=== PATIENT | female | born 1995 | race Caucasian/White ===

== ENCOUNTER 2021-10-14 07:32 | Inpatient (IN) ==
[2021-10-14] MEDS ORDERED: OXYTOCIN 30 UNITS/500 ML BAG IV PRN ×2 (08:24→08:35)
[2021-10-14 08:51] LABS: Hematocrit (blood only) 37.3 % (37-47); Hemoglobin 12.4 g/dL (12.0-16.0); Mean Corpuscular Hgb Conc 33.2 g/dL (32-36); Mean Corpuscular Volume 90.3 fL (80-100); Mean Platelet Volume 10.2 fL (7.4-10.4); Platelet Count 158 K/uL (130-400); RDW Coefficient of Variation 13.7 % (11.5-14.5); Red Blood Count 4.13 M/uL (4.2-5.4); White Blood Count 9.12 K/uL (4.8-10.8)
[2021-10-14] MEDS: LACTATED RINGER'S 1,000 ML IV PRN ×4 (08:56→23:10)
--- NOTE | 2021-10-14 09:01 | History & Physical Report ---
Date of Service October 14, 2021 Assessment & Plan (1) Supervision of normal first : Plan: 26 y/o G1 at 40 2/7 wga presenting for post EDC/eIOL VSS Fetus cat 1 Labor - will start with pitocin, plan arom GBS neg Epidural prn Admission and Anticipated Discharge Date Admission Date: October 14, 2021 History of Present Illness Chief Complaint: IOL Primary Care Provider: HOLLAND Lopez 26 y/o G1 at 40 2/7 wga w/ RAJESH 10/12 who presents for post-edc/elective IOL. +FM; denies regular ctx, LOF, VB PNI: Placental cyst s/p MFM, cyst present 08/18 at f/u Past [employer] Hx: G1 q28-30d cycles Declines hx STIs Declines hx abnl pap, 2020 neg cotest Allergies Allergy/AdvReac Type Severity Reaction Status Date / Time No Known Allergies Allergy Verified 10/13/21 09:18 Home Medications Medication Instructions Recorded Confirmed Type clobetasol TOPICAL PRN 02/24/21 10/13/21 History prenat.vits,oleg,rit-vypj-[id number] 1 tab PO DAILY 02/24/21 10/13/21 History ferrous sulfate PO 08/19/21 10/13/21 History breast pump #1 ea 09/23/21 10/13/21 Rx Patient History Medical History (Updated 06/05/21 @ 09:33 by Mark Anthony Kohli MD, FACOG) Eczema No significant active problems Varicella vaccination Surgical History (Updated 02/24/21 @ 09:55 by Yazmin Domínguez) S/P wisdom tooth extraction Family History (Updated 02/24/21 @ 09:56 by Yazmin Domínguez) Mother Hypertension Gestational diabetes Anxiety Aunt Diabetes Uncle Diabetes Denies family history of Ovarian cancer Breast cancer Colorectal cancer Social History (Updated 02/24/21 @ 09:58 by Yazmin Domínguez) Smoking Status: Never smoker Hx Alcohol Use: No Hx Substance Use: No Preferred Language: Sami Communication Ability: Effective Councilperson Required: No Beliefs That Will Affect Care: None marital status: marital status details: Quan Orellana ([phone] Current Living Situation: Family Current Living Situation Comment: Lives with , 8 rabbits, 1 dog, and 1 cat current occupational status: employed 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[employer] [place] Feels Safe at Home: Yes Safety Concerns: Feels Safe At This Time Assistive Devices: None Physical Exam Constitutional: WD/WN, vitals as above Respiratory: normal respiratory effort; no respiratory distress and no labored breathing Psychiatric: A+Ox3, euthymic affect Genitourinary: OB Exam Abdomen: + vertex and + estimated weight (7-8) Manual OB Exam: + cervical dilation (2-3), + cervical effacement 70% and + station high OB Exam Monitor Tracing: + external FHT monitor used, + external uterine monitor used (irreg ctx) and + category I (145/mod/+accel/-decel) Results & Data ([facility]) Vital Signs (Past 12 Hours) Vital Signs Temp Pulse Resp BP 10/14/21 07:53 99.0 F 96 H 16 134/88 Laboratory Results OB Labs: Blood Type O Positive 03/05/21 Antibody Screen NEGATIVE 03/05/21 Hemoglobin 11.3 g/dL (12.0-16.0) L 07/23/21 Hematocrit 34.0 % (37-47) L 07/23/21 Mean Corpuscular Volume 86.2 fL (80-100) 03/05/21 Platelet Count 222 K/uL (130-400) 03/05/21 Rubella IgG Antibody Immune (Immune) 03/05/21 Rapid Plasma Reagin Nonreactive (Nonreactive) 03/05/21 Hepatitis B Surface Antigen Neg (Neg) 03/05/21 HIV (1&2) Ab and P24 Ag, 4th Gener Neg (Neg) 03/05/21 Glucose 1 Hour 50 gm Load 121 mg/dl (70-130) 07/23/21 OB Optional Labs: Chlamydia trachomatis RNA NOT DETECTED (NOT DETECTED) 03/05/21 Neisseria gonorrhoeae RNA NOT DETECTED (NOT DETECTED) 03/05/21 neg cf/sma GBS neg Diagnostic Findings posterior plac Coding Level of Care Code None Diagnoses Supervision of normal first Z34.00
--- NOTE | 2021-10-14 12:59 | Labor Progress Brief Note ---
Date of Service October 14, 2021 Subjective Feeling ctx, tolerable on the ball Assessment & Plan (1) Supervision of normal first : Plan: 26 y/o G1 at 40 2/7 wga presenting for post EDC/eIOL VSS Fetus cat 1 Labor - pit at 8, now s/p arom. Continue induction GBS neg Epidural prn Admission and Anticipated Discharge Date Admission Date: October 14, 2021 Physical Exam Genitourinary: Manual OB Exam: + cervical dilation (3-4), + cervical effacement 70%, + station -2 and + amniotic fluid (arom clear) OB Exam Monitor Tracing: + external FHT monitor used, + external uterine monitor used (q3-5) and + category I (135-140/mod/+accel/-decel) Results & Data ([facility]) Vital Signs (Past 12 Hours) Vital Signs Temp Pulse Resp BP 10/14/21 12:25 66 120/76 10/14/21 11:56 60 127/77 10/14/21 11:25 56 L 120/78 10/14/21 10:56 59 L 126/75 10/14/21 10:30 63 122/76 10/14/21 09:56 71 123/73 10/14/21 09:25 70 120/77 10/14/21 08:54 73 123/73 10/14/21 07:53 99.0 F 96 H 16 134/88 10/14/21 07:50 99.0 F 16 Coding Level of Care Code None Diagnoses Supervision of normal first Z34.00
[2021-10-14] MEDS ORDERED: ePHEDrine sulfate 50 MG/ML AMP ONE (14:17)
[2021-10-14] MEDS ORDERED: SODIUM CHLORIDE 0.9% INJ 10 ML VIAL ONE (14:18)
[2021-10-14] MEDS ORDERED: fentaNYL citrate 100 MCG/2 ML VIAL ONE (14:18)
[2021-10-14] MEDS ORDERED: BUPIVACAINE 0.25% 30 ML VIAL ONE (14:18)
[2021-10-14] MEDS ORDERED: fentaNYL 2MCG/ML ROPIVACAINE 1.25MG/ML 100 ML BAG EPI ONE (14:19)
[2021-10-14] MEDS ORDERED: fentaNYL 2MCG/ML ROPIVACAINE 1.25MG/ML 100 ML BAG EPI PRN (15:02)
[2021-10-14] MEDS ORDERED: ONDANSETRON INJ 2 MG/ML 2 ML VIAL IV PRN ×2 (15:02→20:32)
[2021-10-14] MEDS ORDERED: diphenhydrAMINE 50 MG/ML VIAL IV PRN (15:02)
[2021-10-14] MEDS ORDERED: NALOXONE HCL 1 MG in SODIUM CHLORIDE 0.9% 1000ML 1,000 ML IV PRN (15:02)
[2021-10-14] MEDS ORDERED: NALBUPHINE HCL INJ 10 MG/ML AMP IV PRN (15:02)
[2021-10-14] MEDS ORDERED: ePHEDrine sulfate 50 MG/ML AMP IV PRN (15:02)
[2021-10-14] MEDS ORDERED: NALOXONE HCL 0.4 MG/1 ML VIAL/CARP IV PRN (15:02)
--- NOTE | 2021-10-14 15:05 | Anesthesiology Consultation ---
Date of Service October 14, 2021 Assessment & Plan Chart Review Chart Review: Patient NOT seen in Pre Admission Testing and Acceptable Risk for Labor Epidural Consults Requested none ASA ASA2 Proposed Anesthesia Anesthesia Type: Labor Epidural and CSE Risk / Benefits Reviewed With: PT / POA / Parent / Guardian, Accepts Plan and Informed Consent Obtained History Height/Weight Height: 5 ft 4 in Weight: 88.904 kg Allergies Allergy/AdvReac Type Severity Reaction Status Date / Time No Known Allergies Allergy Verified 10/13/21 09:18 Medications Home Medications Medication Instructions Recorded Confirmed Last Taken clobetasol TOPICAL PRN 02/24/21 10/13/21 10/10/21 09:00 prenat.vits,oleg,whs-jzue-xhjpa 1 tab PO DAILY 02/24/21 10/14/21 10/13/21 09:00 ferrous sulfate PO 08/19/21 10/13/21 10/13/21 08:00 breast pump #1 ea 09/23/21 10/13/21 Unknown Active Medications Generic Name Dose Route Start Last Admin Trade Name Nasrin PRN Reason Stop Dose Admin Lactated Ringer's 1,000 mls @ 125 mls/hr 10/14/21 08:24 10/14/21 14:42 Lr IV 10/16/21 08:23 999 mls/hr .Q8H PRN Administration L&D Protocol Protocol Oxytocin 30 units in 500 mls @ 8 mls/hr 10/14/21 08:35 10/14/21 12:40 Pitocin IV 10/16/21 08:34 0.48 units/hr .Q24H PRN 8 mls/hr Labor Induction/Augmentation Titration Protocol 0.48 UNITS/HR NPO Date Last Intake of Fluids: 10/14/21 Time Last Intake of Fluids: 14:00 Date Last Intake of Solids: 10/14/21 Time Last Intake of Solids: 08:00 Past Medical History Medical History Eczema No significant active problems Varicella vaccination Exercise / Class Metabolic Activity II 4-5 Yardwork/Stairs/Walk up hill Past Family History Family History Mother Hypertension Gestational diabetes Anxiety Aunt Diabetes Uncle Diabetes Denies family history of Ovarian cancer Breast cancer Colorectal cancer Past Surgical History Surgical History S/P wisdom tooth extraction Past Anesthesia History No Hx of Anesthesia Complications and No Family Hx of Anesthesia Complications History of PONV No Hx of PONV and No Hx of Motion Sickness Social History Smoking Status: Never smoker Hx Alcohol Use: No Hx Substance Use: No substance use type: does not use Review of Systems no chest pain or sob Physical Exam Vital Signs Last Vital Signs Temp 37.2 C 10/14/21 13:50 Pulse 73 10/14/21 14:58 Resp 18 10/14/21 13:50 BP 125/71 10/14/21 14:58 Pulse Ox 100 10/14/21 14:58 ENMT Mouth: no TMJ abnormality Thyromental Distance: > or= 3.5 Finger Breadths Mallampati Class: II Neck normal visual inspection Respiratory normal respiratory effort Auscultation: lungs clear to auscultation bilaterally Cardiovascular Rate/Rhythm: regular rate and regular rhythm Musculoskeletal Spine: normal cervical ROM Neurologic moves all extremities Psychiatric Orientation: alert and oriented x 3 Testing Laboratory Results 10/14/21 08:37
--- NOTE | 2021-10-14 16:17 | Labor Progress Brief Note ---
Date of Service October 14, 2021 Subjective Comfortable w/ epidural Assessment & Plan (1) Supervision of normal first : Plan: 26 y/o G1 at 40 2/7 wga presenting for post EDC/eIOL VSS Fetus cat 1 Labor - continue pit, station much lower and cervix thinner GBS neg Epidural in place Admission and Anticipated Discharge Date Admission Date: October 14, 2021 Physical Exam Genitourinary: Manual OB Exam: + cervical dilation 4 cm, + cervical effacement 80% and + station -2 and -1 OB Exam Monitor Tracing: + external FHT monitor used, + external uterine monitor used (q2-4) and + category I (135-140 /mod/+accel/-decel) Results & Data ([facility]) Vital Signs (Past 12 Hours) Vital Signs Temp Pulse Resp BP Pulse Ox 10/14/21 16:14 68 119/58 L 10/14/21 16:13 68 139/60 98 10/14/21 16:08 58 L 98 10/14/21 16:07 64 124/62 10/14/21 16:03 65 98 10/14/21 16:02 63 122/61 10/14/21 15:58 59 L 121/63 98 10/14/21 15:53 62 116/64 97 10/14/21 15:48 62 98 10/14/21 15:46 67 123/58 L 10/14/21 15:45 20 10/14/21 15:43 61 98 10/14/21 15:41 61 124/58 L 10/14/21 15:38 64 97 10/14/21 15:36 71 121/57 L 10/14/21 15:33 68 97 10/14/21 15:31 66 124/59 L 10/14/21 15:30 18 10/14/21 15:28 70 99 10/14/21 15:25 98.4 F 71 16 120/60 10/14/21 15:23 71 119/59 L 99 10/14/21 15:21 66 124/62 10/14/21 15:19 73 132/60 10/14/21 15:18 69 100 10/14/21 15:13 77 100 10/14/21 15:08 88 100 10/14/21 15:03 61 100 10/14/21 14:58 73 125/71 100 10/14/21 14:53 75 100 10/14/21 14:26 101 H 121/64 82 L 10/14/21 13:56 65 128/70 10/14/21 13:50 99.0 F 18 10/14/21 13:25 70 117/79 10/14/21 12:56 70 155/78 H 10/14/21 12:25 66 120/76 10/14/21 11:56 60 127/77 10/14/21 11:25 56 L 120/78 10/14/21 10:56 59 L 126/75 10/14/21 10:30 63 122/76 10/14/21 09:56 71 123/73 10/14/21 09:25 70 120/77 10/14/21 08:54 73 123/73 10/14/21 07:53 99.0 F 96 H 16 134/88 10/14/21 07:50 99.0 F 16 Coding Level of Care Code None Diagnoses Supervision of normal first Z34.00
--- NOTE | 2021-10-14 19:08 | Labor Progress Brief Note ---
Date of Service October 14, 2021 Subjective Comfortable w/ epidural Assessment & Plan (1) Supervision of normal first : Plan: 26 y/o G1 at 40 2/7 wga presenting for post EDC/eIOL VSS Fetus cat 1 Labor - good progression, continue augmentation GBS neg Epidural in place Admission and Anticipated Discharge Date Admission Date: October 14, 2021 Physical Exam Genitourinary: Manual OB Exam: + cervical dilation 9 cm, + cervical effacement 90% and + station 0 and + 1 OB Exam Monitor Tracing: + external FHT monitor used, + external uterine monitor used (q2-4) and + category I (125/mod/+accel/- decel) Results & Data ([facility]) Vital Signs (Past 12 Hours) Vital Signs Temp Pulse Resp BP Pulse Ox 10/14/21 19:04 72 130/75 10/14/21 19:03 76 100 10/14/21 18:58 62 99 10/14/21 18:53 56 L 99 10/14/21 18:49 58 L 124/68 10/14/21 18:48 53 L 99 10/14/21 18:43 55 L 100 10/14/21 18:38 54 L 100 10/14/21 18:34 61 122/69 10/14/21 18:33 72 98 10/14/21 18:28 53 L 100 10/14/21 18:23 60 100 10/14/21 18:21 53 L 118/65 10/14/21 18:18 60 99 10/14/21 18:13 59 L 99 10/14/21 18:08 55 L 100 10/14/21 18:04 63 119/62 10/14/21 18:03 61 100 10/14/21 18:00 20 10/14/21 17:58 53 L 98 10/14/21 17:53 61 98 10/14/21 17:50 57 L 117/66 10/14/21 17:48 60 98 10/14/21 17:45 18 10/14/21 17:43 61 99 10/14/21 17:38 68 98 10/14/21 17:34 66 121/61 10/14/21 17:33 70 97 10/14/21 17:30 18 10/14/21 17:28 67 98 10/14/21 17:23 67 98 10/14/21 17:20 71 123/63 10/14/21 17:18 70 98 10/14/21 17:13 67 98 10/14/21 17:08 79 98 10/14/21 17:03 66 96 10/14/21 17:01 68 116/57 L 10/14/21 17:00 98.6 F 20 10/14/21 16:58 62 96 10/14/21 16:57 60 119/59 L 10/14/21 16:53 64 97 10/14/21 16:51 67 113/55 L 10/14/21 16:48 65 96 10/14/21 16:47 65 116/61 10/14/21 16:45 18 10/14/21 16:43 61 116/56 L 96 10/14/21 16:38 64 119/58 L 96 10/14/21 16:33 64 96 10/14/21 16:32 61 118/59 L 10/14/21 16:30 18 10/14/21 16:28 60 97 10/14/21 16:27 62 117/59 L 10/14/21 16:23 62 97 10/14/21 16:21 70 119/60 10/14/21 16:18 60 97 10/14/21 16:16 67 120/62 10/14/21 16:15 20 10/14/21 16:14 68 119/58 L 10/14/21 16:13 68 139/60 98 10/14/21 16:08 58 L 98 10/14/21 16:07 64 124/62 10/14/21 16:03 65 98 10/14/21 16:02 63 122/61 10/14/21 16:00 20 10/14/21 15:58 59 L 121/63 98 10/14/21 15:53 62 116/64 97 10/14/21 15:48 62 98 10/14/21 15:46 67 123/58 L 10/14/21 15:45 20 10/14/21 15:43 61 98 10/14/21 15:41 61 124/58 L 10/14/21 15:38 64 97 10/14/21 15:36 71 121/57 L 10/14/21 15:33 68 97 10/14/21 15:31 66 124/59 L 10/14/21 15:30 18 10/14/21 15:28 70 99 10/14/21 15:25 98.4 F 71 16 120/60 10/14/21 15:23 71 119/59 L 99 10/14/21 15:21 66 124/62 10/14/21 15:19 73 132/60 10/14/21 15:18 69 100 10/14/21 15:13 77 100 10/14/21 15:08 88 100 10/14/21 15:03 61 100 10/14/21 14:58 73 125/71 100 10/14/21 14:53 75 100 10/14/21 14:26 101 H 121/64 82 L 10/14/21 13:56 65 128/70 10/14/21 13:50 99.0 F 18 10/14/21 13:25 70 117/79 10/14/21 12:56 70 155/78 H 10/14/21 12:25 66 120/76 10/14/21 11:56 60 127/77 10/14/21 11:25 56 L 120/78 10/14/21 10:56 59 L 126/75 10/14/21 10:30 63 122/76 10/14/21 09:56 71 123/73 10/14/21 09:25 70 120/77 10/14/21 08:54 73 123/73 10/14/21 07:53 99.0 F 96 H 16 134/88 10/14/21 07:50 99.0 F 16 Coding Level of Care Code None Diagnoses Supervision of normal first Z34.00
[2021-10-15] MEDS ORDERED: cefOXitin 2,000 MG in DEXTROSE 5% 50 ML IV ONE (01:45)
[2021-10-15] MEDS ORDERED: AMMONIA, AROMATIC INHAL 1 EA AMP INH ONE (02:28)
[2021-10-15] MEDS ORDERED: cefOXitin 2,000 MG in DEXTROSE 5% 50 ML IV STA (02:32)
--- NOTE | 2021-10-15 02:35 | Delivery Summary ---
Vaginal Delivery Summary Date of Service October 15, 2021 Vaginal Delivery Summary and 3rd Degree LAC PREOPERATIVE DIAGNOSIS: 1. Single intrauterine at 40 3/7 wga 2. Placental cyst 3. Induction of labor POSTOPERATIVE DIAGNOSIS: 1. Single intrauterine at 40 3/7 wga 2. Placental cyst 3. Induction of labor 4. Delivered PROCEDURE: 1. Vacuum assisted vaginal delivery. SURGEON: Dorota Gamez MD ANESTHESIA: Epidural. ESTIMATED BLOOD LOSS: 500 mL FLUIDS: Continuous LR. URINE OUTPUT: None. COMPLICATIONS: None. CONDITION: Stable. INDICATIONS: 26 y/o G1 at 40 3/7 wga presented 1 day ago for planned post-edc induction of labor. She was started on pitocin and underwent artificial rupture of membranes. She received an epidural for pain control. She then progressed to complete and desired to push. FINDINGS: A viable female infant, weight pending with Apgars of 8 and 9 at 1 and 5 minutes respectively. SPECIMEN: Cord gases, cord blood, placenta OPERATIVE REPORT: The patient progressed to 10 cm, 100% effaced and +1 station and pushed for approximately 3 hours to achieve +2 station however was exhausted and requested vacuum assistance. We discussed risks associated with vacuum delivery including scalp abrasion, intracranial hemorrhage, intraventricular hemorrhage, cephalohematoma, brachial plexus injury, OASIS and verbal consent was obtained. Bladder had been emptied 30 minutes prior to discussion of vacuum. head was palpated OA and Kiwi vacuum was applied to the flexion point and pressure increased to the green zone. With the next contraction, patient pushed and the vacuum was pulled over two total contractions and no pop- offs with anesthesia to deliver a viable female infant, weight and Apgars as above. Head of delivered in OA position and Kiwi was removed. Body cord was present and delivered through with body and shoulders delivered following without difficulty. was delivered to maternal abdomen and nursing staff. Delayed cord clamping was performed for 60 seconds. Cord was clamped and cut. Cord segment/gases and blood was obtained. Placenta delivered spontaneously intact with 3-vessel cord. IV oxytocin and fundal massage were given for excellent hemostasis. Vagina, cervix, perineum, and placenta were inspected. Rectal exam was performed confirming rectal mucosa intact. A 3C perineal tear was noted in addition to a left sulcal and bilateral labial lacerations. Cefoxitin was administered at start of repair. A right vaginal repair was first repaired with 3-0 Vicryl. Attention was then turned to the the third degree. Internal anal sphincter was reapproximated. Subsequently the external anal sphincter was identified and repaired in end to end fashion using 2-0 Vicryl. The perineal body was then reinforced with 3-0 Vicryl. Remainder of the tear was repaired and incorporated the high left sulcal in the usual fashion using 3- 0 Vicryl. The bilateral labial tears were repaired using 4-0 vicryl. There was excellent hemostasis. Digital rectal exam confirmed no stitches in the vagina. Sponge and needle counts correct x2. No sponges were left behind. Mother and stable in immediate period. [facility] Vaginal Delivery Charge Vaginal Delivery Codes: 96735 global code for the antepartum, delivery, and post- Delivery Type Details: and 3rd Degree LAC
[2021-10-15 02:36] LABS: Base Excess Cord Venous Blood -1.1 mEq/L (-7.7-1.9); CO2 Cord Arterial Blood 37 mmHg (39.1-73.5); Cord Venous Blood HCO3 23 mmol/L (18.4-26.8); Cord Venous Blood PCO2 38 mmHg (30.4-57.2); Cord Venous Blood PO2 37 mmHg (14.1-43.3); HCO3 Cord Arterial Blood 22 mmol/L (19.7-28.5); Oxygen Sat Cord Arterial Blood 74.1 % (<60); PO2 Cord Arterial Blood 37 mmHg (4.1-31.7)
[2021-10-15] MEDS ORDERED: DIPHTHERIA/TETANUS/PERTUSSIS 0.5 ML SYR/VIAL IM ONE (03:04)
[2021-10-15] MEDS ORDERED: OXYTOCIN 30 UNITS/500 ML BAG IV PRN (03:04)
[2021-10-15] MEDS ORDERED: BENZOCAINE 20% AER SPR 82.5 GM CAN EXT PRN (03:04)
[2021-10-15] MEDS ORDERED: SUPERCREAM 0.870% 15 GM JAR EXT PRN (03:04)
[2021-10-15] MEDS ORDERED: HYDROCORTISONE ACETATE 25 MG SUPP PR PRN (03:04)
[2021-10-15] MEDS: IBUPROFEN 600 MG TAB PO PRN ×4 (04:42→20:39)
[2021-10-15] MEDS: DOCUSATE SODIUM 100 MG CAP PO SCH ×2 (08:41→20:40)
[2021-10-15] MEDS: PRENATAL VITAMIN 1 TAB PO SCH (08:42)
[2021-10-15] MEDS: POLYETHYLENE (MIRALAX) 17 GM PACK PO SCH (08:42)
--- NOTE | 2021-10-15 09:49 | Anesthesia Procedure Note ---
Date of Service October 15, 2021 Anesthesia Post Epidural Note Vital Signs Vital Signs: Temp Pulse Resp BP Pulse Ox 97.9 F 85 20 111/70 98 10/15/21 08:00 10/15/21 08:00 10/15/21 08:00 10/15/21 08:00 10/15/21 08:00 Pain Intensity Vaginal: Pain Intensity: 2 Notes Mental Status: alert / awake / arousable and participated in evaluation Nausea / Vomiting: adequately controlled Pain: adequately controlled Airway Patency, RR, SpO2: stable & adequate BP & HR: stable & adequate Hydration State: stable & adequate Neuraxial Anesthesia: was administered and sensory block is resolving Anesthetic Complications: no major complications apparent and Pt Satisfied with anesthetic care Epidural: Removed without complications and With tip intact
[2021-10-15] MEDS: ACETAMINOPHEN 325 MG TAB PO PRN (23:48)
[2021-10-16] MEDS: IBUPROFEN 600 MG TAB PO PRN ×4 (03:28→18:45)
--- NOTE | 2021-10-16 06:56 | Obstetrical Progress Note ---
Date of Service <Foreign Field MD - Last Filed: 10/16/21 08:07> October 16, 2021 Assessment & Plan <Foreign Field MD - Last Filed: 10/16/21 08:07> (1) Vaginal delivery: 26 yo now PPD1 from with 3rd degree perineal laceration at 40wk3d -Continue routine care, anticipate d/c tomorrow -Vitals reviewed- HDS, afebrile -Blood type O+, GBS-, Rubella immune -Encourage ambulation, regular diet -Pain control with ibuprofen, acetaminophen PRN -Encourage -Hgb 7.7, asymptomatic. Continue to monitor. -F/u in 6 weeks with OB <Merry Grace MD, FACOG - Last Filed: 10/16/21 08:19> (1) Vaginal delivery: Subjective <Foreign Field MD - Last Filed: 10/16/21 08:07> Ambulation: ambulating normally Voiding: no voiding problems Passing Gas:: Yes Diet Tolerance:: regular diet Lochia:: Small Feeding Type:: breast feeding Current Pain Level(1-10): 0 Pt doing well overall, no acute complaints or distress. Pain well controlled with medication. Has passed BM. Review of Systems Denies fever/chills. Denies dyspnea, cough. Denies chest pain. Denies breast pain or discharge. Denies dysuria. Denies headache. Denies back pain. Physical Exam <Foreign Field MD - Last Filed: 10/16/21 08:07> General: Alert, oriented, no acute distress Cardiac: Regular rate and rhythm, normal S1, S2. No murmurs noted. Respiratory: Clear to auscultation b/l with good air flow entry, symmetric chest rise and fall. No wheezes or crackles. No increased work of breathing or accessory muscle use. Abdomen: Soft, nontender, nondistended. Fundus firm and palpable at 2 cm below umbilicus. No guarding or rebound. Skin: No rashes or lesions Extremities: Warm, dry and well-perfused with capillary refill <2s b/l. No lower extremity edema, erythema or swelling. Negative Amor's sign b/l. Results & Data ([facility]) <Foreign Field MD - Last Filed: 10/16/21 08:07> Vital Signs (Past 12 Hours) Vital Signs Temp Pulse Resp BP 10/15/21 23:40 36.7 C 90 18 118/71 10/15/21 20:20 36.6 C 94 H 18 119/72 <Merry Grace MD, FACOG - Last Filed: 10/16/21 08:19> Co-Signing Physician Notes Resident Physician Supervision Note: I was present with Dr. Field during the history and exam. I discussed the case with the resident and agree with the findings and plan as documented in the note. Any exceptions or clarifications are listed here: doing well, routine care. roberto hgb. no active bleeding. aware of laceration and keep bowels soft and regular. Documented By: Merry Grace MD, FACOG Resident Activity Tracking <Foreign Field MD - Last Filed: 10/16/21 08:07> Resident Involvement: Resident Care Provided Care Provided: OB Delivery
[2021-10-16 06:57] LABS: Hematocrit (blood only) 23.2 % (37-47); Hemoglobin 7.7 g/dL (12.0-16.0); Mean Corpuscular Hemoglobin 30.2 pg (25-34); Mean Corpuscular Hgb Conc 33.2 g/dL (32-36); Mean Platelet Volume 9.5 fL (7.4-10.4); Platelet Count 149 K/uL (130-400); RDW Coefficient of Variation 13.9 % (11.5-14.5); RDW Standard Deviation 46.2 fL (36.4-46.3); Red Blood Count 2.55 M/uL (4.2-5.4); White Blood Count 15.55 K/uL (4.8-10.8)
[2021-10-16] MEDS: DOCUSATE SODIUM 100 MG CAP PO SCH ×2 (07:43→20:46)
[2021-10-16] MEDS: PRENATAL VITAMIN 1 TAB PO SCH (07:43)
[2021-10-16] MEDS: POLYETHYLENE (MIRALAX) 17 GM PACK PO SCH (13:18)
[2021-10-16] MEDS: ACETAMINOPHEN 325 MG TAB PO PRN (20:46)
--- NOTE | 2021-10-17 05:40 | Obstetrical Progress Note ---
Date of Service <Foreign Field MD - Last Filed: 10/17/21 07:43> October 17, 2021 Assessment & Plan <Foreign Field MD - Last Filed: 10/17/21 07:43> (1) Vaginal delivery: 26 yo now PPD2 from with 3rd degree perineal laceration at 40wk3d -D/c today, care instructions reviewed -Vitals reviewed- HDS, afebrile -Blood type O+, GBS-, Rubella immune -Encourage ambulation, regular diet -Pain control with ibuprofen, acetaminophen PRN -Encourage -Hgb 7.5, asymptomatic. Continue iron supplementation as outpatient, recheck Hgb. -F/u in 6 weeks with OB <Naomi Veloz MD, FACOG - Last Filed: 10/17/21 08:41> (1) Vaginal delivery: Subjective <Foreign Field MD - Last Filed: 10/17/21 07:43> Ambulation: ambulating normally Voiding: no voiding problems Passing Gas:: Yes Diet Tolerance:: regular diet Lochia:: Small Feeding Type:: breast feeding Current Pain Level(1-10): 0 Pt doing well overall, no acute complaints or distress. Some general soreness of pelvis and lower back but pain well controlled with medication. Review of Systems Denies fever/chills. Denies dyspnea, cough. Denies chest pain. Denies breast pain or discharge. Denies dysuria. Denies headache. Denies back pain. Physical Exam <Foreign Field MD - Last Filed: 10/17/21 07:43> General: Alert, oriented, no acute distress Cardiac: Regular rate and rhythm, normal S1, S2. No murmurs noted. Respiratory: Clear to auscultation b/l with good air flow entry, symmetric chest rise and fall. No wheezes or crackles. No increased work of breathing or accessory muscle use. Abdomen: Soft, nontender, nondistended. Fundus firm and palpable at 2 cm below umbilicus. No guarding or rebound. Skin: No rashes or lesions Extremities: Warm, dry and well-perfused with capillary refill <2s b/l. No lower extremity edema, erythema or swelling. Negative Amor's sign b/l. Results & Data ([facility]) <Foreign Field MD - Last Filed: 10/17/21 07:43> Vital Signs (Past 12 Hours) Vital Signs Temp Pulse Resp BP 10/17/21 00:00 36.6 C 81 18 117/73 <Naomi Veloz MD, FACOG - Last Filed: 10/17/21 08:41> Co-Signing Physician Notes Resident Physician Supervision Note: I interviewed and examined the patient. Discussed with Dr. Field and agree with findings and plan as documented in the note. Any exceptions or clarifications are listed here: [None] Documented By: Naomi Veloz MD, FACOG Resident Activity Tracking <Foreign Field MD - Last Filed: 10/17/21 07:43> Resident Involvement: Resident Care Provided Care Provided: OB Delivery
[2021-10-17] MEDS: IBUPROFEN 600 MG TAB PO PRN ×2 (06:41→12:41)
[2021-10-17 07:12] LABS: Hematocrit (blood only) 22.4 % (37-47); Hemoglobin 7.5 g/dL (12.0-16.0)
[2021-10-17] MEDS: DOCUSATE SODIUM 100 MG CAP PO SCH (08:15)
[2021-10-17] MEDS: PRENATAL VITAMIN 1 TAB PO SCH (08:15)
[2021-10-17] MEDS: POLYETHYLENE (MIRALAX) 17 GM PACK PO SCH (09:00)
--- NOTE | 2021-10-20 09:31 | Discharge Summary ---
Date of Service October 20, 2021 Admission HPI Per Admitting Provider 26 y/o G1 at 40 2/7 wga w/ RAJESH 10/12 who presents for post-edc/elective IOL. +FM; denies regular ctx, LOF, VB PNI: Placental cyst s/p MFM, cyst present 08/18 at f/u Past [employer] Hx: G1 q28-30d cycles Declines hx STIs Declines hx abnl pap, 2019 neg cotest Admission Exam (Per Admitting) Constitutional WD/WN, vitals as above Respiratory normal respiratory effort; no respiratory distress and no labored breathing Psychiatric A+Ox3, euthymic affect Genitourinary OB Exam Abdomen: + vertex and + estimated weight (7-8) Manual OB Exam: + cervical dilation + 9 cm, + cervical effacement + 90%, + station + 0 and + + 1 and + amniotic fluid (arom clear) OB Exam Monitor Tracing: + external FHT monitor used, + external uterine monitor used (q2-4) and + category I (125/mod/+accel/-decel) Discharge Data Consultations 10/14/21 08:24 Consult Anesthesiology Stat Procedures Performed Vacuum assisted vaginal delivery Hospital Course (1) Vacuum-assisted vaginal delivery: The patient presented for planned post-edc induction of labor. She was started on pitocin and underwent artificial rupture of membranes. She received an epidural for pain control. She then progressed to complete and desired to push.The patient progressed to 10 cm, 100% effaced and +1 station and pushed for approximately 3 hours to achieve +2 station however was exhausted and requested vacuum assistance. See operative report for details. , the pt did well and was discharged home on PPD2 Coding Level of Care Code None Diagnoses Vacuum-assisted vaginal delivery Z37.9
== END 2021-10-17 13:00 | disposition home or self-care (01) | DRG 768 ==
LOC: 4S1 07:32 → 4S2 10-15 04:47

== ENCOUNTER 2023-03-16 07:37 | Inpatient (IN) ==
[2023-03-16] MEDS ORDERED: LIDOCAINE 1% LOCAL 20 ML VIAL INFIL PRN (08:10)
[2023-03-16] MEDS ORDERED: OXYTOCIN 30 UNITS/500 ML BAG IV PRN ×3 (08:10→17:57)
--- NOTE | 2023-03-16 08:13 | History & Physical Report ---
Date of Service March 16, 2023 Assessment & Plan (1) Encounter for supervision of normal in multigravida: Roxanna Crane is a 27 year-old female at 39w6d who presents today for induction of labor. -Plan to proceed with induction of labor, will start Pitocin and plan for AROM. -O+/GBS negative/Rubella immune -4.5cm/90%/-2. mid, soft. Fetus cat 1 -Can receive epidural if desired Admission and Anticipated Discharge Date Admission Date: March 16, 2023 History of Present Illness Primary Care Provider: NO PCP Rosa Maria is a 27 year-old female at 39w6d who presents today for induction of labor. She notes movement, denies loss of fluid or vaginal bleeding. States she has had a few contractions. This is a short interval , she had VAVD in October 2021 with 3rd degree tear. No significant past medical history. OB-PATIENT OFFICE REP History -No history of STDs -Normal PAPs, most recent 2019 Del. Date GA wks Lbr Lgth wt Sex Type del Anes Place Del Prov ? Comment 10/15/21 40 8lb 6.9oz F Vaginal-Vacuum Epidu [facility] Dr. Gamez No 3rd deg OB Labs: Blood Type O Positive 08/11/22 Antibody Screen NEGATIVE 08/11/22 Hemoglobin 11.1 g/dl (12.0-16.0) L 12/23/22 Hematocrit 33.1 % (37.0-47.0) L 12/23/22 Mean Corpuscular Volume 83.3 fL (80.0-100.0) 08/11/22 Platelet Count 208 K/uL (130-400) 08/11/22 Rubella IgG Antibody Immune (Immune) 08/11/22 Rapid Plasma ReaginE Nonreactive (Nonreactive) 08/11/22 Hepatitis B Surface Antigen Neg (Neg) 03/05/21 Hepatitis B Surface Antigen. NON-REACTIVE (NON-REACTIVE) 08/11/22 Hepatitis C Antibody Neg (Neg) 10/12/19 Hepatitis C Antibody (EIA) NON-REACTIVE (NON-REACTIVE) 08/11/22 HIV (1&2) Ab and P24 Ag, 4th Gener Neg (Neg) 03/05/21 HIV (1&2) Ag and Ab Confirmation NON-REACTIVE (NON-REACTIVE) 08/11/22 Glucose 1 Hour 50 gm Load 112 mg/dl (70-130) 12/23/22 OB Optional Labs: Chlamydia trachomatis RNA Not Detected (NotDetected) 08/11/22 Neisseria gonorrhoeae RNA Not Detected (NotDetected) 08/11/22 Thyroid Stimulating Hormone (TSH) 1.320 uIu/ml (0.300-4.500) 12/26/21 Allergies Allergy/AdvReac Type Severity Reaction Status Date / Time No Known Allergies Allergy Verified 03/16/23 08:43 Home Medications Medication Instructions Recorded Confirmed Type prenat.vits,oleg,nsx-nbyx-vssrp 1 tab PO DAILY 02/24/21 03/16/23 History famotidine [Pepcid] 40 mg PO DAILY PRN Gi Upset 08/25/22 03/16/23 History breast pump #1 ea 12/23/22 03/15/23 Rx Patient History Medical History Eczema No significant active problems Varicella vaccination Surgical History S/P wisdom tooth extraction Family History Mother Hypertension Gestational diabetes Anxiety Aunt Diabetes Uncle Diabetes Denies family history of Ovarian cancer Breast cancer Colorectal cancer Social History (Updated 08/10/22 @ 09:55 by Yazmin Domínguez) Smoking Status: Never smoker Do You Dip or Chew Tobacco: No; Hx Alcohol Use: No Hx Substance Use: No Preferred Language: Yemeni Communication Ability: Effective Slate Mixer Required: No Beliefs That Will Affect Care: None marital status: marital status details: Quan Orellana ([phone] Current Living Situation: Family Current Living Situation Comment: Lives with , child, 8 rabbits, 1 dog, and 1 cat-outside current occupational status: employed current occupation: [employer] Other Information That Helps Us Care for You: No Feels Safe at Home: Yes Safety Concerns: Feels Safe At This Time Assistive Devices: None Review of Systems As per above Physical Exam Constitutional: WD/WN, vitals as above Eyes: Anicteric sclera ENMT: External ears and nose, moist mucous membranes Respiratory: normal respiratory effort, lungs clear to auscultation Cardiovascular: RRR, no murmur, no edema Musculoskeletal: Moves all limbs independently Skin: no rashes, warm and dry Psychiatric: A+Ox3, euthymic affect Genitourinary: Manual OB Exam: + cervical dilation (4.5 cm), + cervical effacement 70% and 90% and + station -2 OB Exam Monitor Tracing: + external FHT monitor used, + category I and + normal FHT variability Results & Data Vital Signs (Past 12 Hours) Vital Signs Pulse BP 03/16/23 07:54 74 130/78 Supervising Physician Co-Signing Physician Notes Resident Physician Supervision Note: I interviewed and examined the patient. Discussed with Dr. Posada and agree with findings and plan as documented in the note. Any exceptions or clarifications are listed here: Patient is a who presents at 39+ weeks for elective induction. Last delivery was a three hour push, vavd with third degree. Fetus category one. cx--4-5/90/-2. efw 8-9#. Plan pitocin and then arom. She desires unmedicated delivery if possible. Documented By: Lary Hunter MD, FACOG Resident Activity Tracking Resident Involvement: Resident Care Provided Care Provided: OB Delivery
[2023-03-16] MEDS: LACTATED RINGER'S 1,000 ML IV PRN ×2 (08:47→13:36)
[2023-03-16 08:50] LABS: Hematocrit (blood only) 33.3 % (37.0-47.0); Hemoglobin 11.2 g/dl (12.0-16.0); Mean Corpuscular Hemoglobin 29.3 pg (25.0-34.0); Mean Corpuscular Hgb Conc 33.6 g/dL (32.0-36.0); Mean Corpuscular Volume 87.2 fL (80.0-100.0); Mean Platelet Volume 9.9 fL (9.4-12.4); Platelet Count 142 K/uL (130-400); RDW Coefficient of Variation 13.2 % (11.5-14.5); RDW Standard Deviation 41.1 fL (36.4-46.3); Red Blood Count 3.82 M/uL (4.20-5.40); White Blood Count 8.66 K/ul (4.8-10.8)
--- NOTE | 2023-03-16 12:10 | Labor Progress Brief Note ---
Date of Service March 16, 2023 Subjective Patient noting some contractions and some discomfort. ? lof when she went down to the bathroom. Assessment & Plan (1) Encounter for induction of labor: Plan Continue current management. fetus category one and very active. attempted arom, did not really feel a bag and scant return. Admission and Anticipated Discharge Date Admission Date: March 16, 2023 Physical Exam Physical Exam: cx--unchanged, posterior toco--q1-3min, pit at 10 efm--120s wtih mod variability , accels to 160s, no decels Results & Data Vital Signs (Past 12 Hours) Vital Signs Temp Pulse Resp BP 03/16/23 11:37 36.8 C 62 18 128/74 03/16/23 11:36 81 139/113 H 03/16/23 10:30 57 L 20 117/65 03/16/23 09:29 67 20 118/69 03/16/23 07:54 36.6 C 74 20 130/78 03/16/23 07:50 36.6 C 74 18 130/78 Coding Level of Care Code None Diagnoses Encounter for induction of labor Z34.90
[2023-03-16] MEDS ORDERED: fentaNYL citrate PF 100 MCG/2 ML VIAL ONE (13:25)
[2023-03-16] MEDS ORDERED: LIDOCAINE 2%/EPINEPHRINE 1:200,000 20 ML PF ONE (13:25)
[2023-03-16] MEDS ORDERED: fentaNYL 2MCG/ML ROPIVACAINE 1.25MG/ML 100 ML BAG EPI ONE (13:25)
[2023-03-16] MEDS ORDERED: BUPIVACAINE 0.25% PF 30 ML VIAL ONE (13:25)
[2023-03-16] MEDS ORDERED: SODIUM CHLORIDE 0.9% PF INJ 10 ML VIAL ONE (13:25)
[2023-03-16] MEDS ORDERED: ePHEDrine sulfate 50 MG/ML AMP ONE (13:26)
[2023-03-16] MEDS ORDERED: NALBUPHINE HCL INJ 10 MG/ML AMP IV PRN (13:41)
[2023-03-16] MEDS ORDERED: fentaNYL 2MCG/ML ROPIVACAINE 1.25MG/ML 100 ML BAG EPI PRN (13:41)
[2023-03-16] MEDS ORDERED: LIDOCAINE 2% MPF LOCAL 5 ML VIAL EPI ONE (13:41)
[2023-03-16] MEDS ORDERED: diphenhydrAMINE 50 MG/ML VIAL IV PRN (13:41)
[2023-03-16] MEDS ORDERED: fentaNYL citrate PF 100 MCG/2 ML VIAL EPI ONE (13:41)
[2023-03-16] MEDS ORDERED: SODIUM CHLORIDE 0.9% PF INJ 10 ML VIAL EPI STA (13:41)
[2023-03-16] MEDS ORDERED: ROPIVACAINE 0.5% PF 5 MG/ML 20 ML VIAL EPI ONE (13:41)
[2023-03-16] MEDS ORDERED: NALOXONE HCL 1 MG in SODIUM CHLORIDE 0.9% 1000ML 1,000 ML IV PRN (13:41)
[2023-03-16] MEDS ORDERED: NALOXONE HCL 0.4 MG/1 ML VIAL/CARP IV PRN (13:41)
[2023-03-16] MEDS ORDERED: BUPIVACAINE 0.25% PF 30 ML VIAL EPI ONE (13:41)
[2023-03-16] MEDS ORDERED: LIDOCAINE 2%/EPINEPHRINE 1:200,000 20 ML PF EPI STA (13:41)
[2023-03-16] MEDS ORDERED: ePHEDrine sulfate 50 MG/ML AMP IV PRN (13:41)
[2023-03-16] MEDS ORDERED: fentaNYL citrate PF 100 MCG/2 ML VIAL EPI STA (13:41)
[2023-03-16] MEDS ORDERED: BUPIVACAINE 0.25% PF 30 ML VIAL EPI STA (13:41)
[2023-03-16] MEDS ORDERED: SODIUM CHLORIDE 0.9% PF INJ 10 ML VIAL EPI ONE (13:41)
--- NOTE | 2023-03-16 13:43 | Anesthesiology Consultation ---
Date of Service March 16, 2023 Assessment & Plan (1) Encounter for pre-operative examination: Chart Review Chart Review: Patient NOT seen in Pre Admission Testing and Acceptable Risk for Labor Epidural Consults Requested none History Height/Weight Height: 5 ft 4 in Weight: 90.265 kg Allergies Allergy/AdvReac Type Severity Reaction Status Date / Time No Known Allergies Allergy Verified 03/16/23 08:43 Medications Home Medications Medication Instructions Recorded Confirmed Last Taken prenat.vits,oleg,shw-rtzp-agdnd 1 tab PO DAILY 02/24/21 03/16/23 10/13/21 09:00 famotidine [Pepcid] 40 mg PO DAILY PRN Gi Upset 08/25/22 03/16/23 Unknown breast pump #1 ea 12/23/22 03/15/23 Unknown Active Medications Generic Name Dose Route Start Last Admin Trade Name Freq PRN Reason Stop Dose Admin Lactated Ringer's 1,000 mls @ 125 mls/hr 03/16/23 08:10 03/16/23 13:36 Lr IV 03/18/23 08:09 999 mls/hr .Q8H PRN Administration L&D Protocol Protocol Oxytocin 30 units in 500 mls @ 5 mls/hr 03/16/23 09:09 03/16/23 13:37 Pitocin IV 03/18/23 09:08 0.3 units/hr .Q24H PRN 5 mls/hr Labor Induction/Augmentation Titration Protocol 0.3 UNITS/HR Past Medical History Medical History (Updated 03/16/23 @ 13:42 by Stephen Sue MD) Eczema Encounter for anatomic survey Encounter for pre-operative examination No significant active problems Placenta, abnormal Supervision of normal first Vaginal delivery Varicella vaccination Exercise / Class Metabolic Activity II 4-5 Yardwork/Stairs/Walk up hill Past Family History Family History Mother Hypertension Gestational diabetes Anxiety Aunt Diabetes Uncle Diabetes Denies family history of Ovarian cancer Breast cancer Colorectal cancer Past Surgical History Surgical History S/P wisdom tooth extraction Past Anesthesia History No Hx of Anesthesia Complications and No Family Hx of Anesthesia Complications Social History Smoking Status: Never smoker Do You Dip or Chew Tobacco: No Hx Alcohol Use: No Hx Substance Use: No substance use type: does not use Physical Exam Vital Signs Last Vital Signs Temp 36.8 C 03/16/23 11:37 Pulse 65 03/16/23 13:59 Resp 24 03/16/23 13:29 BP 122/78 03/16/23 13:29 Pulse Ox 99 03/16/23 13:59 Testing Laboratory Results 03/16/23 08:32
--- NOTE | 2023-03-16 14:39 | Labor Progress Brief Note ---
Date of Service March 16, 2023 Subjective comfortable with epidural Assessment & Plan (1) Encounter for induction of labor: Plan continue current management. anticipate . fetus category one. Admission and Anticipated Discharge Date Admission Date: March 16, 2023 Physical Exam Physical Exam: cx--8/100/-1 toco--q2min, pit at 5 efm--120s with mod variability, small accels, no decels Results & Data Vital Signs (Past 12 Hours) Vital Signs Temp Pulse Resp BP Pulse Ox 03/16/23 14:35 64 129/69 03/16/23 14:34 60 99 03/16/23 14:29 55 L 97 03/16/23 14:28 52 L 108/58 L 03/16/23 14:24 61 112/57 L 97 03/16/23 14:19 62 97 03/16/23 14:20 61 110/55 L 03/16/23 14:14 98 03/16/23 14:14 67 03/16/23 14:14 70 117/57 L 03/16/23 14:11 78 126/71 03/16/23 14:09 65 124/70 97 03/16/23 13:04 24 03/16/23 13:04 36.8 C 24 03/16/23 14:07 60 122/72 03/16/23 14:05 63 126/76 03/16/23 14:04 65 99 03/16/23 14:03 61 123/72 03/16/23 14:00 66 130/72 03/16/23 13:59 65 99 03/16/23 13:54 61 98 03/16/23 13:49 62 100 03/16/23 13:44 67 99 03/16/23 13:29 66 24 122/78 03/16/23 12:29 62 135/87 03/16/23 11:37 36.8 C 62 18 128/74 03/16/23 11:36 81 139/113 H 03/16/23 10:30 57 L 20 117/65 03/16/23 09:29 67 20 118/69 03/16/23 07:54 36.6 C 74 20 130/78 03/16/23 07:50 36.6 C 74 18 130/78 Coding Level of Care Code None Diagnoses Encounter for induction of labor Z34.90
--- NOTE | 2023-03-16 16:56 | Labor Progress Brief Note ---
Date of Service March 16, 2023 Subjective some nausea. recent emesis. feeling pressure in her bottom Assessment & Plan (1) Encounter for induction of labor: Plan begin active second stage. fetus category one. anticipate . Admission and Anticipated Discharge Date Admission Date: March 16, 2023 Physical Exam Physical Exam: cx--c/c/+2 toco--q2-3, pit at 5 efm--120s with mod variability, small accels, early decels with contractions. Results & Data Vital Signs (Past 12 Hours) Vital Signs Temp Pulse Resp BP Pulse Ox 03/16/23 16:49 51 L 98 03/16/23 16:44 49 L 97 03/16/23 16:42 53 L 113/64 03/16/23 16:39 51 L 98 03/16/23 16:34 54 L 98 03/16/23 16:29 51 L 99 03/16/23 16:27 48 L 114/60 03/16/23 16:24 51 L 98 03/16/23 16:19 58 L 98 03/16/23 16:14 51 L 102/56 L 99 03/16/23 16:09 65 98 03/16/23 16:04 55 L 99 03/16/23 15:59 49 L 98 03/16/23 15:57 48 L 20 125/77 03/16/23 15:54 57 L 98 03/16/23 15:49 62 98 03/16/23 15:44 63 99 03/16/23 15:42 80 123/67 03/16/23 15:39 53 L 97 03/16/23 15:34 54 L 97 03/16/23 15:29 51 L 98 03/16/23 15:28 51 L 118/67 03/16/23 15:24 54 L 98 03/16/23 15:19 50 L 98 03/16/23 15:14 50 L 99 03/16/23 15:12 36.8 C 55 L 16 109/57 L 03/16/23 15:09 78 97 03/16/23 15:05 50 L 109/58 L 03/16/23 15:04 56 L 98 03/16/23 14:59 54 L 107/57 L 97 03/16/23 14:54 56 L 97 03/16/23 14:55 56 L 104/56 L 03/16/23 14:49 98 03/16/23 14:49 51 L 03/16/23 14:49 57 L 105/56 L 03/16/23 14:44 56 L 97 03/16/23 14:45 55 L 107/58 L 03/16/23 14:39 61 98 03/16/23 14:40 62 110/59 L 03/16/23 14:35 64 129/69 03/16/23 14:34 60 99 03/16/23 14:29 55 L 97 03/16/23 14:28 52 L 108/58 L 03/16/23 14:24 61 112/57 L 97 03/16/23 14:19 62 97 03/16/23 14:20 61 110/55 L 03/16/23 14:14 98 03/16/23 14:14 67 03/16/23 14:14 70 117/57 L 03/16/23 14:11 78 126/71 03/16/23 14:09 65 124/70 97 03/16/23 13:04 24 03/16/23 13:04 36.8 C 24 03/16/23 14:07 60 122/72 03/16/23 14:05 63 126/76 03/16/23 14:04 65 99 03/16/23 14:03 61 123/72 03/16/23 14:00 66 130/72 03/16/23 13:59 65 99 03/16/23 13:54 61 98 03/16/23 13:49 62 100 03/16/23 13:44 67 99 03/16/23 13:29 66 24 122/78 03/16/23 12:29 62 135/87 03/16/23 11:37 36.8 C 62 18 128/74 03/16/23 11:36 81 139/113 H 03/16/23 10:30 57 L 20 117/65 03/16/23 09:29 67 20 118/69 03/16/23 07:54 36.6 C 74 20 130/78 03/16/23 07:50 36.6 C 74 18 130/78 Coding Level of Care Code None Diagnoses Encounter for induction of labor Z34.90
[2023-03-16] MEDS ORDERED: ACETAMINOPHEN 325 MG TAB PO PRN (17:57)
[2023-03-16] MEDS ORDERED: HYDROCORTISONE ACETATE 25 MG SUPP PR PRN (17:57)
[2023-03-16] MEDS ORDERED: DIPHTHERIA/TETANUS/PERTUSSIS 0.5mL SYR/VIAL (Age 7+yrs) IM ONE (17:57)
[2023-03-16] MEDS ORDERED: oxyCODONE/ACETAMINOPHEN 5mg/325mg TAB PO PRN (17:57)
[2023-03-16] MEDS ORDERED: BENZOCAINE 20% AER SPR 82.5 GM CAN EXT PRN (17:57)
--- NOTE | 2023-03-16 17:57 | Delivery Summary ---
Vaginal Delivery Summary Date of Service March 16, 2023 Vaginal Delivery Summary and 2nd Degree LAC Pre-operative Diagnosis: at 39 6/7 elective induction hx of three hour push, vacuum and third degree repair Post-operative Diagnosis: same Procedure: pitocin induction arom epidural second degree lac and repair EBL: 400cc Anesthesia: epidural Procedure: The patient presented for elective induction at 39 6/7 weeks. Underwent pitocin induction, arom and epidural. Progressed to c/c/+2. The patient pushed for about 30 minutes to deliver a viable male infant in rosalio position. The anterior shoulder was easily delivered through a loose nuchal c ord. The rest of the was then delivered without difficulty. The baby was vigorous. The nose and mouth were again bulb suctioned and the infant was placed in the maternal abdomen for drying and attention. Cord was clamped and cut at 2 minutes of life. Cord blood and segment obtained. Placenta delivered spontaneous, intact with a three vessel cord. Cervix/sulci/rectum were intact. A second degree perineal laceration was repaired in the normal standard fashion. Hemostasis obtained with dilute pitocin and fundal massage. Apgars were 7/8. Mother and baby doing well at the end of the delivery. [facility] Vaginal Delivery Charge Delivery Type Details: and 2nd Degree LAC
--- NOTE | 2023-03-16 19:05 | Anesthesia Procedure Note ---
Date of Service March 16, 2023 Anesthesia Post Epidural Note Vital Signs Vital Signs: Temp Pulse Resp BP Pulse Ox 36.8 C 76 20 116/63 98 03/16/23 15:12 03/16/23 18:58 03/16/23 15:57 03/16/23 18:58 03/16/23 17:39 Notes Mental Status: alert / awake / arousable and participated in evaluation Patient Amnestic to Procedure: No Nausea / Vomiting: adequately controlled Pain: adequately controlled Airway Patency, RR, SpO2: stable & adequate BP & HR: stable & adequate Hydration State: stable & adequate Neuraxial Anesthesia: was administered and sensory block is resolving Anesthetic Complications: no major complications apparent and Pt Satisfied with anesthetic care Epidural: Removed without complications and With tip intact
[2023-03-16] MEDS ORDERED: ONDANSETRON INJ 2 MG/ML 2 ML VIAL ONE (19:30)
[2023-03-16] MEDS: IBUPROFEN 600 MG TAB PO PRN (19:38)
[2023-03-16] MEDS ORDERED: ondansetron HCL 8 MG in DEXTROSE 5% 50 ML IV STA (20:07)
[2023-03-16] MEDS: DOCUSATE SODIUM 100 MG CAP PO SCH (21:23)
[2023-03-17] MEDS: IBUPROFEN 600 MG TAB PO PRN ×4 (00:08→13:00)
--- NOTE | 2023-03-17 06:39 | Obstetrical Progress Note ---
Date of Service March 17, 2023 Assessment & Plan (1) Encounter for supervision of normal in multigravida: Plan Rosa Maria is a 27 year-old female who is PPD #1 following delivery at 39w6d -Meeting all milestones -Vital signs reviewed and WNL -Follow up in 6 weeks for appointment -Continue routine care -Anticipate d/c at 24 hrs Admission and Anticipated Discharge Date Admission Date: March 16, 2023 Supervising Physician Co-Signing Physician Notes Resident Physician Supervision Note: I was present with Dr. Posada during the history and exam. I discussed the case with the resident and agree with the findings and plan as documented in the note. Any exceptions or clarifications are listed here: Doing well. Routine pp care. Would like d/c this evening if baby can go. Instructions reviewed. Documented By: Lary Hunter MD, FACOG Subjective Rosa Maria is a 27 year-old female who is PPD #1 following delivery at 39w6d. She reports feeling well overall this morning. Notes abdominal cramping but pain well managed on analgesics. Voiding without issue. Tolerating meals overnight and able to ambulate some. Has some persistent lochia with some improvement this morning, denies dizziness/lightheadedness with ambulation. Currently breast feeding. Review of Systems Constitutional: no fever, no chills and no sweats Respiratory: no cough, no dyspnea and no wheezing Cardiovascular: no chest pain, no palpitations and no calf pain Genitourinary: no dysuria Neurologic: no headache(s) Physical Exam Constitutional: WD/WN, vitals as above no acute distress Respiratory: no respiratory distress Auscultation: lungs clear to auscultation bilaterally; no rales, no rhonchi and no wheezes Cardiovascular: RRR, no murmur, no edema Extremities: no calf tenderness and no edema Negative Amor's sign bilaterally. Gastrointestinal (Abdomen): Inspection/Auscultation: normal bowel sounds Genitourinary: Uterine fundus firm, palpable below the umbilicus. Results & Data Vital Signs (Past 12 Hours) Vital Signs Temp Pulse Pulse Resp BP BP 03/17/23 03:45 36.5 C 80 18 110/71 03/16/23 23:40 36.8 C 73 18 139/81 03/16/23 21:20 36.9 C 79 18 107/66 03/16/23 19:15 36.7 C 18 03/16/23 20:12 78 126/74 03/16/23 19:57 81 121/68 03/16/23 19:42 65 125/71 03/16/23 19:27 68 118/70 03/16/23 19:12 66 129/70 03/16/23 18:58 76 116/63 03/16/23 18:43 100 H 154/115 H Resident Activity Tracking Resident Involvement: Resident Care Provided Care Provided: OB Delivery
[2023-03-17 06:51] LABS: Hematocrit (blood only) 29.3 % (37.0-47.0)
[2023-03-17] MEDS ORDERED: PRENATAL VITAMIN 1 TAB PO SCH (08:00)
[2023-03-17] MEDS: DOCUSATE SODIUM 100 MG CAP PO SCH (08:05)
[2023-03-17] MEDS ORDERED: bisacodyL 5 MG TABEC PO SCH (20:00)
[2023-03-18] MEDS ORDERED: bisacodyL 10 MG SUPP PR PRN (08:00)
== END 2023-03-17 19:50 | disposition home or self-care (01) | DRG 807 ==
LOC: 4S1 07:37 → 4E2 21:16